=== PATIENT | male | born 1970 | race American Indian/Alaskan Native ===

== ENCOUNTER 2020-10-11 21:04 | Emergency (ER) | payer OTHER ==
[~2020-10-11] VITALS: Ht 165.1 cm; Wt 72.6 kg
[2020-10-11] MEDS ORDERED: ALEVE220 M1 PO (21:18)
== END 2020-10-12 00:28 | disposition home or self-care (01) ==
LOC: ED 21:04
DX: R11.2 Nausea with vomiting, unspecified (principal); I10 Essential (primary) hypertension; Z87.891 Personal history of nicotine dependence
CPT/HCPCS: 80053; 81001; 83735; 85025; 96374; 96375; 96376; 99284-25; C9113; J1200; J2405; J2550; J2765; J7030

== ENCOUNTER 2022-01-14 15:05 | Emergency (ER) | payer OTHER ==
[~2022-01-14] VITALS: Ht 165.1 cm; Wt 72.6 kg
[~2022-01-14 15:05] MED LIST: ALEVE220 M1 PO
[2022-01-14] MEDS ORDERED: OMEPRAZOLE20 MG PO (23:49)
[2022-01-14] MEDS ORDERED: ONDANSETRON ODT4 MG PO (23:49)
== END 2022-01-15 00:15 | disposition home or self-care (01) ==
LOC: ED 15:05
DX: K21.9 Gastro-esophageal reflux disease without esophagitis (principal); R11.2 Nausea with vomiting, unspecified; R74.01 Elevation of levels of liver transaminase levels; R79.89 Other specified abnormal findings of blood chemistry; I10 Essential (primary) hypertension; Z87.891 Personal history of nicotine dependence
CPT/HCPCS: 36415; 76705; 80053; 81001; 83690; 85025; 96374; 96375; 99284-25; J1885; J2405; J7121

== ENCOUNTER 2022-12-21 20:40 | Emergency (ER) | payer OTHER ==
[~2022-12-21] VITALS: Ht 165.1 cm; Wt 75.0 kg
--- OUTSIDE RECORDS SUMMARY | ~2022-12-21 | XMS | Continuity of Care Document ---
Demographics + + + | Address | [id number] [place] [address] RD | | | [place] [address] | + + + | Preferred Language | Unknown | + + + | Marital Status | Never | + + + | Anabaptist Affiliation | Unknown | + + + | Race | or | + + + | Ethnic Group | Not or | + + + Author + + + | Author | [facility] | + + + | Organization | [facility] | + + + | Address | [address] | | | [place] [address] | + + + | Phone | | + + + Care Team Providers + + + + | Care Stevedoring Supervisor Name | Role | Phone | + + + + Unavailable | Unavailable | + + + + Unavailable | Unavailable | + + + + Allergies No information. Encounters No information. Functional Status No information. Immunizations No information. Medications + + + + | date | description | facility | + + + + | 2022-01-14 00:00 | ONDANSETRON | [facility] | + + + + | 2022-01-14 00:00 | OMEPRAZOLE | [facility] | + + + + Problems + + + + | date | description | facility | + + + + | 2020-10-12 00:00 | Vomiting | [facility] | + + + + | 2022-01-14 00:00 | Gastroesophageal reflux | [facility] | | | disease | | + + + + | 2022-01-14 00:00 | Abdominal pain | [facility] | + + + + | 2022-01-14 00:00 | Nausea and vomiting | [facility] | + + + + | 2022-01-14 00:00 | Elevated liver enzymes | [facility] | + + + + Procedures No information. Results/Labs +--------+--------+ +---------+--------+---------+ | test | date | facility | value | unit | notes | +--------+--------+ +---------+--------+---------+ + + | Result panel 1 | + + + + + +--------+ + + | | 2022-01-14 | [facility] | 13.9 | (missing) | (missing) | | (unavailable | 17:17 [facility] | | | | + + + +--------+ + + + + | Result panel 2 | + + + + + +--------+ + + | | 2022-01-14 | [facility] | 77.2 | (missing) | (missing) | | (unavailable | 17:17 [facility] | | | | + + + +--------+ + + + + | Result panel 3 | + + + + + +--------+ + + | | 2022-01-14 | [facility] | 14.0 | (missing) | (missing) | | (unavailable | 17:17 [facility] | | | | + + + +--------+ + + + + | Result panel 4 | + + + + + +-------+ + + | | 2022-01-14 | [facility] | 7.7 | (missing) | (missing) | | (unavailable | 17:17 [facility] | | | | + + + +-------+ + + + + | Result panel 5 | + + + + + +-------+ + + | | 2022-01-14 | [facility] | 0.3 | (missing) | (missing) | | (unavailable | 17:17 [facility] | | | | + + + +-------+ + + + + | Result panel 6 | + + + + + +-------+ + + | | 2022-01-14 | [facility] | 0.8 | (missing) | (missing) | | (unavailable | 17:17 [facility] | | | | + + + +-------+ + + + + | Result panel 7 | + + + + + +--------+ + + | | 2022-01-14 | [facility] | 5.42 | (missing) | (missing) | | (unavailable | 17:17 [facility] | | | | + + + +--------+ + + + + | Result panel 8 | + + + + + +------+---------+ + | | 2022-01-14 | [facility] | 83 | mg/dL | (missing) | | (unavailable | 17:17 [facility] | | | | + + + +------+---------+ + + + | Result panel 9 | + + + + + +------+---------+ + | | 2022-01-14 | [facility] | 22 | mg/dL | (missing) | | (unavailable | 17:17 [facility] | | | | + + + +------+---------+ + + + | Result panel 10 | + + + + + +--------+ + + | | 2022-01-14 | [facility] | 15.0 | (missing) | (missing) | | (unavailable | 17:17 [facility] | | | | + + + +--------+ + + + + | Result panel 11 | + + + + + +--------+---------+ + | | 2022-01-14 | [facility] | 1.48 | mg/dL | (missing) | | (unavailable | 17:17 [facility] | | | | + + + +--------+---------+ + + + | Result panel 12 | + + + + + +------+ + + | | 2022-01-14 | [facility] | 58 | (missing) | (missing) | | (unavailable | 17:17 [facility] | | | | + + + +------+ + + + + | Result panel 13 | + + + + + +---------+ + + | | 2022-01-14 | [facility] | 14.86 | (missing) | (missing) | | (unavailable | 17:17 [facility] | | | | + + + +---------+ + + + + | Result panel 14 | + + + + + +-------+ + + | | 2022-01-14 | [facility] | 141 | (missing) | (missing) | | (unavailable | 17:17 [facility] | | | | + + + +-------+ + + + + | Result panel 15 | + + + + + +-------+ + + | | 2022-01-14 | [facility] | 3.6 | (missing) | (missing) | | (unavailable | 17:17 [facility] | | | | + + + +-------+ + + + + | Result panel 16 | + + + + + +-------+ + + | | 2022-01-14 | [facility] | 104 | (missing) | (missing) | | (unavailable | 17:17 [facility] | | | | + + + +-------+ + + + + | Result panel 17 | + + + + + +------+ + + | | 2022-01-14 | [facility] | 23 | (missing) | (missing) | | (unavailable | 17:17 [facility] | | | | + + + +------+ + + + + | Result panel 18 | + + + + + +--------+ + + | | 2022-01-14 | [facility] | 17.6 | (missing) | (missing) | | (unavailable | 17:17 [facility] | | | | + + + +--------+ + + + + | Result panel 19 | + + + + + +-------+---------+ + | | 2022-01-14 | [facility] | 8.8 | mg/dL | (missing) | | (unavailable | 17:17 [facility] | | | | + + + +-------+---------+ + + + | Result panel 20 | + + + + + +-------+ + + | | 2022-01-14 | [facility] | 8.6 | (missing) | (missing) | | (unavailable | 17:17 [facility] | | | | + + + +-------+ + + + + | Result panel 21 | + + + + + +--------+ + + | | 2022-01-14 | [facility] | 44.4 | (missing) | (missing) | | (unavailable | 17:17 [facility] | | | | + + + +--------+ + + + + | Result panel 22 | + + + + + +-------+ + + | | 2022-01-14 | [facility] | 4.2 | (missing) | (missing) | | (unavailable | 17:17 [facility] | | | | + + + +-------+ + + + + | Result panel 23 | + + + + + +-------+ + + | | 2022-01-14 | [facility] | 4.4 | (missing) | (missing) | | (unavailable | 17:17 [facility] | | | | + + + +-------+ + + + + | Result panel 24 | + + + + + +--------+ + + | | 2022-01-14 | [facility] | 0.95 | (missing) | (missing) | | (unavailable | 17:17 [facility] | | | | + + + +--------+ + + + + | Result panel 25 | + + + + + +-------+ + + | | 2022-01-14 | [facility] | 1.7 | (missing) | (missing) | | (unavailable | 17:17 [facility] | | | | + + + +-------+ + + + + | Result panel 26 | + + + + + +------+ + + | | 2022-01-14 | [facility] | 43 | (missing) | (missing) | | (unavailable | 17:17 [facility] | | | | + + + +------+ + + + + | Result panel 27 | + + + + + +------+ + + | | 2022-01-14 | [facility] | 68 | (missing) | (missing) | | (unavailable | 17:17 [facility] | | | | + + + +------+ + + + + | Result panel 28 | + + + + + +-------+ + + | | 2022-01-14 | [facility] | 109 | (missing) | (missing) | | (unavailable | 17:17 [facility] | | | | + + + +-------+ + + + + | Result panel 29 | + + + + + +-------+ + + | | 2022-01-14 | [facility] | 146 | (missing) | (missing) | | (unavailable | 17:17 [facility] | | | | + + + +-------+ + + + + | Result panel 30 | + + + + + +--------+ + + | | 2022-01-14 | [facility] | 82.0 | (missing) | (missing) | | (unavailable | 17:17 [facility] | | | | + + + +--------+ + + + + | Result panel 31 | + + + + + +--------+ + + | | 2022-01-14 | [facility] | 27.7 | (missing) | (missing) | | (unavailable | 17:17 [facility] | | | | + + + +--------+ + + + + | Result panel 32 | + + + + + +--------+ + + | | 2022-01-14 | [facility] | 33.7 | (missing) | (missing) | | (unavailable | 17:17 [facility] | | | | + + + +--------+ + + + + | Result panel 33 | + + + + + +--------+ + + | | 2022-01-14 | [facility] | 15.1 | (missing) | (missing) | | (unavailable | 17:17 [facility] | | | | + + + +--------+ + + + + | Result panel 34 | + + + + + +-------+ + + | | 2022-01-14 | [facility] | 340 | (missing) | (missing) | | (unavailable | 17:17 [facility] | | | | + + + +-------+ + + + + | Result panel 35 | + + + + + + + + + | | 2022-01-14 | [facility] | YELLOW | (missing) | (missing) | | (unavailable | 17:56 [facility] | | | | + + + + + + + + + | Result panel 36 | + + + + + +---------+ + + | | 2022-01-14 | [facility] | CLEAR | (missing) | (missing) | | (unavailable | 17:56 [facility] | | | | + + + +---------+ + + + + | Result panel 37 | + + + + + + + + + | | 2022-01-14 | [facility] | NEGATIVE | (missing) | (missing) | | (unavailable | 17:56 [facility] | | | | + + + + + + + + + | Result panel 38 | + + + + + + + + + | | 2022-01-14 | [facility] | POSITIVE | (missing) | (missing) | | (unavailable | 17:56 [facility] | | | | + + + + + + + + + | Result panel 39 | + + + + + +---------+ + + | | 2022-01-14 | [facility] | SMALL | (missing) | (missing) | | (unavailable | 17:56 [facility] | | | | + + + +---------+ + + + + | Result panel 40 | + + + + + + + + + | | 2022-01-14 | [facility] | >=1.030 | (missing) | (missing) | | (unavailable | 17:56 [facility] | | | | + + + + + + + + + | Result panel 41 | + + + + + + + + + | | 2022-01-14 | [facility] | NEGATIVE | (missing) | (missing) | | (unavailable | 17:56 [facility] | | | | + + + + + + + + + | Result panel 42 | + + + + + +-------+ + + | | 2022-01-14 | [facility] | 5.5 | (missing) | (missing) | | (unavailable | 17:56 [facility] | | | | + + + +-------+ + + + + | Result panel 43 | + + + + + + + + + | | 2022-01-14 | [facility] | NEGATIVE | (missing) | (missing) | | (unavailable | 17:56 [facility] | | | | + + + + + + + + + | Result panel 44 | + + + + + + + + + | | 2022-01-14 | [facility] | NORMAL | (missing) | (missing) | | (unavailable | 17:56 [facility] | | | | + + + + + + + + + | Result panel 45 | + + + + + + + + + | | 2022-01-14 | [facility] | NEGATIVE | (missing) | (missing) | | (unavailable | 17:56 [facility] | | | | + + + + + + + + + | Result panel 46 | + + + + + + + + + | | 2022-01-14 | [facility] | NEGATIVE | (missing) | (missing) | | (unavailable | 17:56 [facility] | | | | + + + + + + + + + | Result panel 47 | + + + + + + + + + | | 2022-01-14 | [facility] | CLEAN CATCH | (missing) | (missing) | | (unavailable | 17:56 [facility] | | | | + + + + + + + Social History No information. Vital Signs + + + +---------+ | date | measurement | value | units | + + + +---------+ | 2022-01-14 00:00 | BMI | 26.6 | kg/m2 | + + + +---------+ | 2022-01-14 00:00 | height_metric | 165.1 | cm | + + + +---------+ | 2022-01-14 00:00 | height_standard | 65 | in | + + + +---------+ | 2022-01-14 00:00 | weight_metric | 72.57 | kg | + + + +---------+ | 2022-01-14 00:00 | weight_standard | 159.99 | lb | + + + +---------+ | 2022-01-14 00:00 | weight_standard | 160 | lb | + + + +---------+ | 2022-01-15 00:00 | BP_diastolic | 101 | mmHg | + + + +---------+ | 2022-01-15 00:00 | BP_systolic | 154 | mmHg | + + + +---------+ | 2022-01-15 00:00 | heart_rate | 73 | /min | + + + +---------+ | 2022-01-15 00:00 | o2_saturation | 98 | % | + + + +---------+ | 2022-01-15 00:00 | respiration_rate | 16 | /min | + + + +---------+ | 2022-01-15 00:00 | temperature_metric | 36.67 | C | | | | | | + + + +---------+ | 2022-01-15 00:00 | | 98 | F | | | temperature_standar | | | | | d | | | + + + +---------+"
--- OUTSIDE RECORDS SUMMARY | ~2022-12-21 | XMS | Continuity of Care Document ---
Demographics + + + | Address | [address] [place] [address] RD | | | [place] [address] | + + + | Preferred Language | Unknown | + + + | Marital Status | Never | + + + | Lutheran Affiliation | Unknown | + + + | Race | or | + + + | Ethnic Group | Not or | + + + Author + + + | Author | [facility] | + + + | Organization | [facility] | + + + | Address | [address] | | | [place] [address] | + + + | Phone | | + + + Care Team Providers + + + + | Care Repair Cameraman Name | Role | Phone | + + + + Unavailable | Unavailable | + + + + Unavailable | Unavailable | + + + + Allergies No information. Encounters No information. Functional Status No information. Immunizations No information. Medications + + + + | date | description | facility | + + + + | 2022-01-14 00:00 | ONDANSETRON | [facility] | + + + + | 2022-01-14 00:00 | OMEPRAZOLE | [facility] | + + + + Problems + + + + | date | description | facility | + + + + | 2020-10-12 00:00 | Vomiting | [facility] | + + + + | 2022-01-14 00:00 | Gastroesophageal reflux | [facility] | | | disease | | + + + + | 2022-01-14 00:00 | Abdominal pain | [facility] | + + + + | 2022-01-14 00:00 | Nausea and vomiting | [facility] | + + + + | 2022-01-14 00:00 | Elevated liver enzymes | [facility] | + + + + Procedures No [...]
[~2022-12-21 20:40] MED LIST changes: +OMEPRAZOLE20 MG PO; +ONDANSETRON ODT4 MG PO
[2022-12-21 21:10] LABS: BASOPHILS 0.9 % (0-2); EOSINOPHILS 1.9 % (0-6); HEMATOCRIT 44.4 % (35.0-50.0); HEMOGLOBIN 14.7 g/dL (12.0-18.0); LYMPHOCYTES 19.6 % (24-44); MCH 27.7 (27-36); MCHC 33.1 g/dl (30-36); MCV 83.6 fl (81-99); MONOCYTES 7.5 % (0-12); NEUTROPHILS 70.1 % (39-80); PLATELET COUNT 328 K/uL (140-440); RBC 5.31 M/ul (4.3-5.7); RDW 14.6 (10.5-15.0)
[2022-12-21 21:20] LABS: INR 0.94 (0.80-1.30); PROTIME 12.2 Sec (11.2-14.2)
[2022-12-21 21:25] LABS: ALBUMIN 3.8 g/dL (3.4-5.0); ALBUMIN/GLOBULIN RATIO 0.9 (1.1-2.4); ANION GAP 13.1 (7-21); BILIRUBIN, TOTAL 1.1 ng/dL (0.2-1.0); BUN/CREATININE RATIO 10.14 (6.0-28.6); CALCIUM 8.7 mg/dL (8.5-10.1); CREATININE, SERUM 1.38 mg/dL (0.70-1.30); POTASSIUM 3.1 mmol/L (3.5-5.1)
[2022-12-21] MEDS ORDERED: CARAFATE1 GM PO (21:57)
[2022-12-21] MEDS ORDERED: PROTONIX40 MG PO (21:58)
[2022-12-21 22:37] VITALS: BP 161/99
== END 2022-12-21 22:39 | disposition home or self-care (01) ==
LOC: ED 20:40
PROVIDERS: Family Medicine
DX: K21.9 Gastro-esophageal reflux disease without esophagitis (principal); I10 Essential (primary) hypertension; Z87.891 Personal history of nicotine dependence
CPT/HCPCS: 36415; 74177; 80053; 85025; 85610; 96375; 99284-25; A9270; C9113; J2270; Q9967